=== PATIENT | female | born 1940 | race Two or more races ===

== ENCOUNTER 2025-07-17 11:09 | Emergency (ER) | payer OTHER ==
[~2025-07-17] VITALS: Ht 157.5 cm; Wt 113.4 kg
[~2025-07-17 11:09] MED LIST: ATORVASTATIN CA10 MG; AVAPRO150 MG; CRESTOR40 MG; ISOSORBIDE MONO30 M2; LANTUS SOL100 UNIT/1 SQ; PEPCID20 MG PO; ROSUVASTATIN CAL5 MG
[2025-07-17] MEDS ORDERED: TRAMADOL HCL 50 MG TABLET PO ONE (13:15)
[2025-07-17 14:09] LABS: BASO % 0.3 % (0.1-1.2); EOS # 0.21 (0.04-0.54); EOS % 2.7 % (0.7-7.0); LYMPH # 1.51 (1.18-3.74); LYMPH % 19.5 % (19.3-53.1); MEAN PLATELET VOLUME 11.20 fl (9.4-12.4); MONO # 0.53 (0.24-0.82); MONO % 6.9 % (4.7-12.5); NEUT # 5.45 (1.56-6.13); NEUT % 70.5 % (34.0-71.1); RED CELL DISTRIBUTION WIDTH 14.1 % (11.6-14.4)
[2025-07-17 14:31] LABS: URINE APPEARANCE Clear; URINE BILIRRUBIN Negative (NEGATIVE); URINE BLOOD Negative; URINE COLOR Yellow; URINE GLUCOSE Negative (NEGATIVE); URINE KETONE Negative (NEGATIVE); URINE LEUKOCYTE Negative; URINE NITRATE Negative; URINE UROBILINOGEN 0.2 E.U./dl
[2025-07-17 14:31] LABS: ALT/SGPT 21.0 U/L (12-78); AST/SGOT 14.0 U/L (15-37); BILIRUBIN TOTAL 0.28 mg/dL (0.3-1.2); BUN CREA RATIO 30.0 (7.0-25.0); CREATININE SERUM 1.13 mg/dL (0.55-1.02); GFR 45.98; GLOBULINA 4.2 G/DL (2.4-3.5); GLUCOSE FASTING 150.0 mg/dL (65-100); OSMOLALITY SERUM 297.0 MOSM/KG (275-295)
[2025-07-17 14:40] LABS: URINE BACTERIA 69.5 uL (0.0-1933); URINE EPITHELIAL CELLS 6.3 uL (0.0-38.8); URINE RBC 4.6 uL (0.0-20.8); URINE WBC 19.5 uL (0.0-23.2)
[2025-07-17 15:22] LABS: URINE CAST 0.29 uL (0.0-1.40); URINE PROTEIN 100 (NEGATIVE)
[2025-07-17 15:42] LABS: ABG PH 7.368 (7.35-7.45); ABG PO2 100.4 mmHg (80-100)
[2025-07-17 15:44] LABS: BICARBONATE 97.5 mmol/l (23-25); o2 21 %
[2025-07-17] MEDS ORDERED: KETOROLAC TROMETHAMINE 30 MG VIAL ONE (23:46)
[2025-07-17] MEDS ORDERED: KETOROLAC TROMETHAMINE 30 MG VIAL IV STA (23:47)
== END 2025-07-18 12:24 | disposition home or self-care (01) ==
LOC: ER 11:09
PROVIDERS: General Practice
DX: R60.0 Localized edema (principal); R06.02 Shortness of breath; I10 Essential (primary) hypertension; E11.9 Type 2 diabetes mellitus without complications; Z79.4 Long term (current) use of insulin
CPT/HCPCS: 36415; 51702; 71045; 82803; 99283; J1885; J3490

== ENCOUNTER 2025-08-27 11:28 | Inpatient (IN) | payer OTHER ==
[~2025-08-27] VITALS: Ht 157.5 cm; Wt 113.4 kg
[2025-08-27] MEDS ORDERED: VANCOMYCIN HCL 1,000 MG VIAL IV SCH (11:45)
[2025-08-27] MEDS ORDERED: FAMOtidine 10 MG/ML (4ML VIAL) IV ONE (11:45)
[2025-08-27] MEDS ORDERED: LEVALBUTEROL HCL 1.25 MG/3 ML SOLUTION IH SCH (11:46)
[2025-08-27] MEDS ORDERED: INSULIN LISPRO 1,000 UNIT/10 ML UNITS SUBCUTANEO PRN (12:00)
[2025-08-27] MEDS ORDERED: MORPHINE SULFATE 2 MG/ML SYRINGE IV PRN (12:00)
[2025-08-27] MEDS ORDERED: DEXTROSE 50 % IN WATER 0.5 G/ML DISP.SYRIN IV PRN (12:00)
[2025-08-27] MEDS ORDERED: 0.9 % SODIUM CHLORIDE 1,000 ML IV ONE (12:00)
--- NOTE | 2025-08-27 12:04 | NUR ---
PACIENTE ALERTA Y ORIENTADA X3 REFIERE EDEMA EN LAS EXTREMIDADES INFERIORES. SE EVELIN S/V Y SE UBICA.
[2025-08-27] MEDS ORDERED: FAMOTIDINE/PF 20 MG/2 ML VIAL ONE (12:25)
[2025-08-27] MEDS ORDERED: VANCOMYCIN HCL 1,000 MG VIAL ONE (12:25)
[2025-08-27] MEDS ORDERED: LEVALBUTEROL HCL 1.25 MG/3 ML SOLUTION IH ONE ×2 (12:40→16:31)
[2025-08-27 13:11] LABS: BASO % 0.2 % (0.1-1.2); EOS # 0.16 (0.04-0.54); EOS % 1.6 % (0.7-7.0); LYMPH # 1.07 (1.18-3.74); LYMPH % 10.9 % (19.3-53.1); MEAN PLATELET VOLUME 11.00 fl (9.4-12.4); MONO # 0.56 (0.24-0.82); MONO % 5.7 % (4.7-12.5); NEUT # 8.02 (1.56-6.13); NEUT % 81.4 % (34.0-71.1); RED CELL DISTRIBUTION WIDTH 13.5 % (11.6-14.4)
--- NOTE | 2025-08-27 13:24 | NUR ---
SE ORIENTA A PACIENTE SOBRE TRATAMIENTO MEDICO, REFIERE ENTENDER. SE REALIZAN MUESTRAS DE LABORATORIO BAJO MEDIDAS ASEPTICAS. SE ADMINISTRAN MEDICAMENTOS PRISCILLA ORDEN MEDICA. SE COORDINA SONALI X. SE NOTIFICA ABG Y TERAPIA RESPIRATORIA. SE INSERTA SONDA URINARIA BAJO MEDIDAS ESTERILES, SE COLECTA U/A Y U/C.
[2025-08-27 13:50] LABS: INR 1.17
[2025-08-27 13:54] LABS: ALT/SGPT 16.0 U/L (12-78); AST/SGOT 23.0 U/L (15-37); BILIRUBIN TOTAL 0.45 mg/dL (0.3-1.2); BUN CREA RATIO 27.0 (7.0-25.0); CREATININE SERUM 1.49 mg/dL (0.55-1.02); GFR 33.42; GLOBULINA 4.3 G/DL (2.4-3.5); GLUCOSE FASTING 167.0 mg/dL (65-100); OSMOLALITY SERUM 297.0 MOSM/KG (275-295)
[2025-08-27 14:01] LABS: URINE APPEARANCE Cloudy; URINE BILIRRUBIN Negative (NEGATIVE); URINE BLOOD Negative; URINE COLOR Yellow; URINE GLUCOSE Negative (NEGATIVE); URINE KETONE Trace (NEGATIVE); URINE LEUKOCYTE Trace; URINE NITRATE Negative; URINE PROTEIN 30 (NEGATIVE); URINE UROBILINOGEN 1.0 E.U./dl
[2025-08-27 14:02] LABS: URINE BACTERIA 103.1 uL (0.0-1933); URINE CAST 1.61 uL (0.0-1.40); URINE EPITHELIAL CELLS 42.5 uL (0.0-38.8); URINE RBC 3.0 uL (0.0-20.8); URINE WBC 16.2 uL (0.0-23.2)
[2025-08-27 14:18] LABS: TYPE CELLS SQUAMOUS
[2025-08-27] MEDS ORDERED: CEFTRIAXONE SODIUM 2,000 MG in 0.9 % SODIUM CHLORIDE 100 ML IV ONE (18:15)
[2025-08-27] MEDS ORDERED: CEFTRIAXONE SODIUM 2,000 MG VIAL ONE (18:21)
[2025-08-27] MEDS ORDERED: ACETAMINOPHEN 325 MG TABLET PO PRN (21:15)
[2025-08-27 21:29] LABS: ERYTHROCYTE SEDIMENTATION RATE 36 mm/hr (0-30)
[2025-08-27 21:56] VITALS: BP 101/57; O2SAT 100
[2025-08-27] MEDS ORDERED: 0.9 % SODIUM CHLORIDE 1,000 ML IV SCH (22:30)
[2025-08-28] MEDS ORDERED: PIPERACILLIN/TAZOBACTAM SODIUM 2.25 GM in DEXTROSE 5 % IN WATER 50 ML IV SCH
[2025-08-28 03:35] VITALS: BP 111/66; O2SAT 100
[2025-08-28] MEDS ORDERED: ACETAMINOPHEN 500 MG GEL..CAP PO PRN (07:00)
[2025-08-28 08:00] VITALS: BP 96/52; O2SAT 97
[2025-08-28] MEDS ORDERED: ENOXAPARIN SODIUM 30 MG/0.3 ML SYRINGE SUBCUTANEO SCH (09:00)
[2025-08-28] MEDS ORDERED: ROSUVASTATIN CALCIUM 20 MG TABLET PO SCH (09:00)
[2025-08-28] MEDS ORDERED: PANTOPRAZOLE SODIUM 40 MG/VIAL VIAL IV SCH (09:00)
[2025-08-28] MEDS ORDERED: VANCOMYCIN HCL 5 MG/ML REDILUIDO IV SCH (09:00)
[2025-08-28] MEDS ORDERED: VANCOMYCIN HCL 500 MG VIAL IV SCH (09:00)
[2025-08-28] MEDS ORDERED: IRBESARTAN 75 MG TABLET PO SCH (09:00)
[2025-08-28] MEDS ORDERED: CEFEPIME HCL 2,000 MG VIAL IV SCH (17:00)
[2025-08-28 17:54] VITALS: BP 109/52; O2SAT 96
[2025-08-28] MEDS ORDERED: LINEZOLID 600 MG TABLET PO SCH (21:00)
[2025-08-29 02:28] VITALS: BP 101/59; O2SAT 98
[2025-08-29 06:15] LABS: BASO % 0.1 % (0.1-1.2); EOS # 0.28 (0.04-0.54); EOS % 3.7 % (0.7-7.0); LYMPH # 1.45 (1.18-3.74); LYMPH % 19.1 % (19.3-53.1); MEAN PLATELET VOLUME 12.10 fl (9.4-12.4); MONO # 0.68 (0.24-0.82); MONO % 9.0 % (4.7-12.5); NEUT # 5.14 (1.56-6.13); NEUT % 67.8 % (34.0-71.1); RED CELL DISTRIBUTION WIDTH 13.8 % (11.6-14.4)
[2025-08-29 06:41] LABS: ALT/SGPT 10.0 U/L (12-78); AST/SGOT 12.0 U/L (15-37); BILIRUBIN TOTAL 0.28 mg/dL (0.3-1.2); BUN CREA RATIO 27.0 (7.0-25.0); CREATININE SERUM 1.13 mg/dL (0.55-1.02); GFR 45.98; GLOBULINA 3.2 G/DL (2.4-3.5); GLUCOSE FASTING 117.0 mg/dL (65-100); OSMOLALITY SERUM 294.0 MOSM/KG (275-295)
[2025-08-29 08:00] VITALS: BP 112/59; O2SAT 96
[2025-08-29 16:00] VITALS: BP 123/57; O2SAT 98
[2025-08-29] MEDS ORDERED: EPOETIN ALFA-EPBX 10,000 UNIT/ML VIAL (Retacrit) SUBCUTANEO SCH (17:00)
[2025-08-29] MEDS ORDERED: CEFEPIME HCL 2,000 MG VIAL IV SCH (17:00)
[2025-08-29] MEDS ORDERED: CYANOCOBALAMIN (VITAMIN B-12) 1,000 MCG/ML VIAL IM STA (17:29)
[2025-08-29] MEDS ORDERED: SOD FERRIC GLUC COMPLX/SUCROSE 62.5 MG in 0.9 % SODIUM CHLORIDE 50 ML IV SCH (18:30)
[2025-08-29 23:55] VITALS: BP 100/50; O2SAT 97
[2025-08-30] MEDS ORDERED: PANTOPRAZOLE SODIUM 40 MG TABLET.DR PO SCH (09:00)
[2025-08-30] MEDS ORDERED: ENOXAPARIN SODIUM 40 MG/0.4 ML SYRINGE SUBCUTANEO SCH (09:00)
[2025-08-30] MEDS ORDERED: CYANOCOBALAMIN (VITAMIN B-12) 1,000 MCG/ML VIAL IM SCH (09:00)
[2025-08-30 11:58] LABS: URINE APPEARANCE Clear; URINE BILIRRUBIN Negative (NEGATIVE); URINE BLOOD Small; URINE COLOR Yellow; URINE GLUCOSE Negative (NEGATIVE); URINE KETONE Trace (NEGATIVE); URINE LEUKOCYTE Trace; URINE NITRATE Negative; URINE PROTEIN 30 (NEGATIVE); URINE UROBILINOGEN 0.2 E.U./dl
[2025-08-30 11:59] LABS: URINE BACTERIA 5.9 uL (0.0-1933); URINE EPITHELIAL CELLS 6.1 uL (0.0-38.8); URINE RBC 68.6 uL (0.0-20.8); URINE WBC 16.9 uL (0.0-23.2)
[2025-08-30 12:05] LABS: URINE CAST 0.87 uL (0.0-1.40)
[2025-08-30 16:00] VITALS: BP 116/49; O2SAT 97
[2025-08-30] MEDS ORDERED: SOD FERRIC GLUC COMPLX/SUCROSE 62.5 MG in 0.9 % SODIUM CHLORIDE 50 ML IV SCH (17:00)
[2025-08-31 00:30] VITALS: BP 100/52; O2SAT 96
[2025-08-31 08:48] VITALS: BP 122/55; O2SAT 97
[2025-08-31 16:08] VITALS: BP 109/60; O2SAT 96
[2025-08-31] MEDS ORDERED: CYANOCOBALAMIN (VITAMIN B-12) 1,000 MCG/ML VIAL IM SCH (17:00)
[2025-08-31] MEDS ORDERED: SOD FERRIC GLUC COMPLX/SUCROSE 62.5 MG in 0.9 % SODIUM CHLORIDE 50 ML IV SCH (17:00)
[2025-09-01 00:25] VITALS: BP 117/63; O2SAT 94
[2025-09-01 08:19] VITALS: BP 119/58; O2SAT 98
[2025-09-01] MEDS ORDERED: MUPIROCIN 22 GM OINT..GM TUBE NASAL SCH (09:00)
[2025-09-01] MEDS ORDERED: CHLORHEXIDINE GLUCONATE 120 ML BOTTLE TOP SCH (09:00)
[2025-09-01 13:20] LABS: BASO % 0.2 % (0.1-1.2); EOS # 0.17 (0.04-0.54); EOS % 1.4 % (0.7-7.0); LYMPH # 0.80 (1.18-3.74); LYMPH % 6.6 % (19.3-53.1); MEAN PLATELET VOLUME 11.20 fl (9.4-12.4); MONO # 0.50 (0.24-0.82); MONO % 4.1 % (4.7-12.5); NEUT # 10.68 (1.56-6.13); NEUT % 87.5 % (34.0-71.1); RED CELL DISTRIBUTION WIDTH 13.6 % (11.6-14.4)
[2025-09-01 14:07] LABS: BUN CREA RATIO 27.0 (7.0-25.0); CREATININE SERUM 0.96 mg/dL (0.55-1.02); GFR 55.5; GLUCOSE FASTING 138.0 mg/dL (65-100); OSMOLALITY SERUM 294.0 MOSM/KG (275-295)
[2025-09-01 15:25] VITALS: BP 114/67; O2SAT 96
[2025-09-02 00:28] VITALS: BP 107/61; O2SAT 96
[2025-09-02 06:51] LABS: BASO % 0.2 % (0.1-1.2); EOS # 0.34 (0.04-0.54); EOS % 2.9 % (0.7-7.0); LYMPH # 0.91 (1.18-3.74); LYMPH % 7.8 % (19.3-53.1); MEAN PLATELET VOLUME 11.40 fl (9.4-12.4); MONO # 0.51 (0.24-0.82); MONO % 4.4 % (4.7-12.5); NEUT # 9.87 (1.56-6.13); NEUT % 84.4 % (34.0-71.1); RED CELL DISTRIBUTION WIDTH 13.9 % (11.6-14.4)
[2025-09-02 08:49] VITALS: BP 106/62; O2SAT 97
[2025-09-02 15:57] VITALS: BP 127/65; O2SAT 98
[2025-09-02] MEDS ORDERED: ZINC OXIDE 30 GM,NYSTATIN 30 GM,SILVER SULFADIAZINE 50 GM TOP SCH (17:00)
[2025-09-03 00:06] VITALS: BP 147/66; O2SAT 98
[2025-09-03 08:00] VITALS: BP 128/63; O2SAT 96
[2025-09-03 16:00] VITALS: BP 154/65; O2SAT 95
[2025-09-04 00:09] VITALS: BP 118/61; O2SAT 98
[2025-09-04 08:30] VITALS: BP 121/64; O2SAT 95
[2025-09-04 16:57] VITALS: BP 158/67; O2SAT 99
[2025-09-05 00:30] VITALS: BP 141/68; O2SAT 97
[2025-09-05 07:10] LABS: BASO % 0.3 % (0.1-1.2); EOS # 0.22 (0.04-0.54); EOS % 3.0 % (0.7-7.0); LYMPH # 0.86 (1.18-3.74); LYMPH % 11.7 % (19.3-53.1); MEAN PLATELET VOLUME 10.60 fl (9.4-12.4); MONO # 0.52 (0.24-0.82); MONO % 7.1 % (4.7-12.5); NEUT # 5.72 (1.56-6.13); NEUT % 77.5 % (34.0-71.1); RED CELL DISTRIBUTION WIDTH 13.8 % (11.6-14.4)
[2025-09-05 07:45] LABS: ALT/SGPT 25.0 U/L (12-78); AST/SGOT 25.0 U/L (15-37); BILIRUBIN TOTAL 0.32 mg/dL (0.3-1.2); BUN CREA RATIO 26.0 (7.0-25.0); CREATININE SERUM 0.97 mg/dL (0.55-1.02); GFR 54.84; GLOBULINA 3.7 G/DL (2.4-3.5); GLUCOSE FASTING 107.0 mg/dL (65-100); OSMOLALITY SERUM 290.0 MOSM/KG (275-295)
[2025-09-05 08:37] VITALS: BP 121/56; O2SAT 95
[2025-09-05 16:52] VITALS: BP 116/60; O2SAT 97
[2025-09-06 00:30] VITALS: BP 112/68; O2SAT 96
[2025-09-06 08:40] VITALS: BP 151/65; O2SAT 99
[2025-09-06 15:56] VITALS: BP 135/65; O2SAT 94
[2025-09-07 02:08] VITALS: BP 122/66; O2SAT 95
[2025-09-07 08:00] VITALS: BP 129/55; O2SAT 95
[2025-09-07 16:00] VITALS: BP 147/64; O2SAT 97
[2025-09-07] MEDS ORDERED: CLOTRIMAZOLE 10 MG TROCHE MM SCH (17:00)
[2025-09-08] VITALS: BP 139/66; O2SAT 97
[2025-09-08 08:00] VITALS: BP 150/72; O2SAT 99
== END 2025-09-08 15:21 | disposition home or self-care (01) | DRG 300 ==
LOC: ER 11:28 → SURH 20:15
PROVIDERS: General Practice; Internal Medicine Infectious Disease; Internal Medicine Nephrology; ADMIT Internal Medicine; ATTEND Internal Medicine
PROC: 3E0F7GC Introduction of Other Therapeutic Substance into Respiratory Tract, Via Natural or Artificial Opening (ICD-10-PCS; principal; 2025-08-28)
PROC: 8E0ZXY6 Isolation (ICD-10-PCS; 2025-08-30)
PROC: 30233N1 Transfusion of Nonautologous Red Blood Cells into Peripheral Vein, Percutaneous Approach (ICD-10-PCS; 2025-08-31)
DX: I83.218 Varicose veins of right lower extremity with both ulcer of other part of lower extremity and inflammation (principal); L03.115 Cellulitis of right lower limb; L97.818 Non-pressure chronic ulcer of other part of right lower leg with other specified severity; L97.828 Non-pressure chronic ulcer of other part of left lower leg with other specified severity; L03.116 Cellulitis of left lower limb; N17.8 Other acute kidney failure; I83.228 Varicose veins of left lower extremity with both ulcer of other part of lower extremity and inflammation; E11.621 Type 2 diabetes mellitus with foot ulcer; Z79.4 Long term (current) use of insulin; E11.628 Type 2 diabetes mellitus with other skin complications; B96.5 Pseudomonas (aeruginosa) (mallei) (pseudomallei) as the cause of diseases classified elsewhere; B95.61 Methicillin susceptible Staphylococcus aureus infection as the cause of diseases classified elsewhere; E78.49 Other hyperlipidemia; I11.9 Hypertensive heart disease without heart failure; E11.22 Type 2 diabetes mellitus with diabetic chronic kidney disease; I12.9 Hypertensive chronic kidney disease with stage 1 through stage 4 chronic kidney disease, or unspecified chronic kidney disease; N18.9 Chronic kidney disease, unspecified; D64.9 Anemia, unspecified; J44.9 Chronic obstructive pulmonary disease, unspecified

== ENCOUNTER 2025-09-09 18:36 | Inpatient (IN) | payer OTHER ==
[~2025-09-09] VITALS: Ht 152.4 cm; Wt 81.6 kg
--- NOTE | 2025-09-09 19:25 | NUR ---
PACIENTE ALERTA Y ORIENTADA X3 QUIEN REFIERE VENIR POR HABERSE CAIDO EN ROBBINS RESIDENCIA. PACIENTE CON OXIGENO DE AMBULANCIA A 2 L/MIN.
[2025-09-09] MEDS ORDERED: IPRATROPIUM BROMIDE 0.5 MG/2.5 ML AMPUL.NEB IH ONE (20:30)
[2025-09-09] MEDS ORDERED: METHYLPREDNISOLONE SOD SUCC 125 MG VIAL IV ONE (20:30)
[2025-09-09] MEDS ORDERED: LEVALBUTEROL HCL 1.25 MG/3 ML SOLUTION IH ONE (20:30)
--- NOTE | 2025-09-09 23:01 | NUR ---
SE ORIENTA PACIENTE SOBRE TX MEDICO Y RAFAEL REFIERE ENTENDER Y ACEPTAR EL MSIMO. SE PROCEDE A KANIKA MUESTRAS DE LAB Y A CANALIZAR BAJO MEIDDAS ASEPTICAS NILE DE EDEMA Y ERITEMA. SE PROCEDE A ADMINISTRAR MEDICAMENTO PRISCILLA ORDEN MEDICA BAJO MEDIDAS ASEPTICAS. SE PROCEDE A CONECTAR PACIENTE A MONITOR CARDIACO CON OXIMETRIA DE PULSO.
[2025-09-09 23:15] LABS: BASO % 0.2 % (0.1-1.2); EOS # 0.00 (0.04-0.54); EOS % 0.0 % (0.7-7.0); ERYTHROCYTE SEDIMENTATION RATE 50 mm/hr (0-30); LYMPH # 1.08 (1.18-3.74); LYMPH % 12.7 % (19.3-53.1); MEAN PLATELET VOLUME 10.00 fl (9.4-12.4); MONO # 0.49 (0.24-0.82); MONO % 5.8 % (4.7-12.5); NEUT # 6.90 (1.56-6.13); NEUT % 80.9 % (34.0-71.1); RED CELL DISTRIBUTION WIDTH 14.6 % (11.6-14.4)
[2025-09-09 23:35] LABS: INR 1.36
[2025-09-09 23:40] LABS: ALT/SGPT 28.0 U/L (12-78); AST/SGOT 32.0 U/L (15-37); BILIRUBIN TOTAL 0.26 mg/dL (0.3-1.2); BUN CREA RATIO 24.0 (7.0-25.0); CREATININE SERUM 1.0 mg/dL (0.55-1.02); GFR 52.95; GLOBULINA 4.2 G/DL (2.4-3.5); GLUCOSE FASTING 136.0 mg/dL (65-100); OSMOLALITY SERUM 289.0 MOSM/KG (275-295)
[2025-09-10 01:16] LABS: COVID-19 AG NEGATIVE (NEGATIVE)
[2025-09-10] MEDS ORDERED: NITROGLYCERIN IN 5 % DEXTROSE 50 MG/250 ML BOTTLE IV STA (05:59)
--- NOTE | 2025-09-10 06:46 | NUR ---
PTE UBICADO EN AREA SECCION K#7, SE RERALIZA INSERCCION DE CISNEROS CATETER # 16 BAJO MEDIDAS ASEPTICAS Y LIMPIAS, SE KYMEBRLY MUESTRAS DE RENÉ Y SE ADMINISTRA MEDICACION PRISCILLA ORDEN MEDICA. SE OFRECE CAMBIO DE POSICION , PANAL Y LIMPIEZA AL CLIENTE . SE OFRECE ORIENTACION SOBRE PROCEDIMIENTOS REALIZADOS Y SEGUIMIENTO DE CONDICION.
[2025-09-10 08:45] LABS: URINE APPEARANCE Clear; URINE BILIRRUBIN Negative (NEGATIVE); URINE BLOOD Moderate; URINE COLOR Yellow; URINE GLUCOSE Negative (NEGATIVE); URINE KETONE Trace (NEGATIVE); URINE LEUKOCYTE Negative; URINE NITRATE Negative; URINE UROBILINOGEN 0.2 E.U./dl
--- NOTE | 2025-09-10 08:46 | NUR ---
S EPROCEDE A ORIENTAR A PACIENTE SOBRE TX MEDICO Y RAFAEL REFIERE ENTENDER Y ACEPTAR EL MISMO. SE PROCEDE A KANIKA S/V A PACIENTE Y SE ADMINISTRA MEDICAMENTO PRISCILLA ORDEN MEDICA BAJO MEDIDAS ASEPTICAS.
[2025-09-10 08:49] LABS: URINE BACTERIA 14.3 uL (0.0-1933); URINE CAST 4.25 uL (0.0-1.40); URINE EPITHELIAL CELLS 27.2 uL (0.0-38.8); URINE RBC 5.8 uL (0.0-20.8); URINE WBC 5.2 uL (0.0-23.2)
[2025-09-10 09:56] LABS: TYPE CELLS SQUAMOUS; URINE MUCUS MODERATE; URINE PROTEIN 300 (NEGATIVE)
[2025-09-10] MEDS ORDERED: LEVALBUTEROL HCL 0.63 MG/3 ML SOLUTION IH SCH (13:00)
[2025-09-10] MEDS ORDERED: IPRATROPIUM BROMIDE 0.5 MG/2.5 ML AMPUL.NEB IH SCH (13:05)
[2025-09-10] MEDS ORDERED: ENOXAPARIN SODIUM 40 MG/0.4 ML SYRINGE SUBCUTANEO SCH (13:08)
[2025-09-10] MEDS ORDERED: MEROPENEM 1,000 MG in 0.9 % SODIUM CHLORIDE 100 ML IV SCH (13:11)
[2025-09-10] MEDS ORDERED: INSULIN LISPRO 1,000 UNIT/10 ML UNITS SUBCUTANEO PRN (13:30)
[2025-09-10] MEDS ORDERED: DEXTROSE 50 % IN WATER 0.5 G/ML DISP.SYRIN IV PRN (13:30)
[2025-09-10 14:33] VITALS: BP 121/47; O2SAT 99
[2025-09-10 15:30] VITALS: BP 102/49; O2SAT 100
[2025-09-10 16:42] LABS: LDH 223.0 U/L (84-246)
[2025-09-10 16:45] LABS: CKMB 6.0 NG/ML (0.5-3.6)
[2025-09-10] MEDS ORDERED: MEROPENEM 500 MG in 0.9 % SODIUM CHLORIDE 100 ML IV SCH (17:00)
[2025-09-10] MEDS ORDERED: NITROGLYCERIN IN 5 % DEXTROSE 50 MG/250 ML KIT IV SCH (23:30)
[2025-09-10] MEDS ORDERED: GUAIFENESIN/DEXTROMETHORPHAN 100MG/10ML BLIST.PACK PO PRN (23:30)
[2025-09-11] VITALS (10 sets, daily range): BP systolic 96–143; BP diastolic 35–69; O2SAT 97–100
[2025-09-11 00:13] LABS: LDH 312.0 U/L (84-246)
[2025-09-11 00:21] LABS: CKMB 5.5 NG/ML (0.5-3.6)
[2025-09-11 06:15] LABS: BASO % 0.4 % (0.1-1.2); EOS # 0.03 (0.04-0.54); EOS % 0.4 % (0.7-7.0); LYMPH # 1.19 (1.18-3.74); LYMPH % 16.7 % (19.3-53.1); MEAN PLATELET VOLUME 10.10 fl (9.4-12.4); MONO # 0.46 (0.24-0.82); MONO % 6.5 % (4.7-12.5); NEUT # 5.39 (1.56-6.13); NEUT % 75.6 % (34.0-71.1); RED CELL DISTRIBUTION WIDTH 14.7 % (11.6-14.4)
[2025-09-11 06:39] LABS: INR 1.31
[2025-09-11] MEDS ORDERED: NITROGLYCERIN IN 5 % DEXTROSE 250 ML IV SCH (06:45)
[2025-09-11 06:56] LABS: ALT/SGPT 25.0 U/L (12-78); AST/SGOT 25.0 U/L (15-37); BILIRUBIN TOTAL 0.36 mg/dL (0.3-1.2); BUN CREA RATIO 28.0 (7.0-25.0); CREATININE SERUM 1.21 mg/dL (0.55-1.02); GFR 42.49; GLOBULINA 4.5 G/DL (2.4-3.5); GLUCOSE FASTING 116.0 mg/dL (65-100); OSMOLALITY SERUM 295.0 MOSM/KG (275-295)
[2025-09-11 07:05] LABS: CHOL HDL RATIO 1.6 (0-5.0); CKMB 2.8 NG/ML (0.5-3.6); HDL 46.0 mg/dl (40-60); LDH 208.0 U/L (84-246); LDL 12.0 mg/dl (0-130); TSH 1.34 uIU/mL (0.358-3.74); VLDL 16.0 (0-39)
[2025-09-11] MEDS ORDERED: LINEZOLID IN DEXTROSE 5% 300 ML IV NR (11:00)
[2025-09-11] MEDS ORDERED: BUDESONIDE 0.5 MG/2 ML AMPUL.NEB IH SCH (11:59)
[2025-09-11] MEDS ORDERED: CLOPIDOGREL BISULFATE 75 MG TABLET PO SCH (12:00)
[2025-09-11] MEDS ORDERED: CLOPIDOGREL BISULFATE 75 MG TABLET PO NR (13:00)
[2025-09-11] MEDS ORDERED: CLOTRIMAZOLE 10 MG TROCHE MM SCH (17:00)
[2025-09-11] MEDS ORDERED: METHYLPREDNISOLONE SOD SUCC 40 MG VIAL IV SCH (20:29)
[2025-09-11] MEDS ORDERED: IPRATROPIUM BROMIDE 0.5 MG/2.5 ML AMPUL.NEB IH SCH (21:00)
[2025-09-11] MEDS ORDERED: LINEZOLID IN DEXTROSE 5% 300 ML IV SCH (21:00)
[2025-09-11] MEDS ORDERED: LEVALBUTEROL HCL 0.63 MG/3 ML SOLUTION IH SCH (21:00)
[2025-09-12 04:00] VITALS: BP 130/56; O2SAT 98
[2025-09-12 06:54] LABS: URINE APPEARANCE Clear; URINE BILIRRUBIN Negative (NEGATIVE); URINE BLOOD Moderate; URINE COLOR Yellow; URINE GLUCOSE Negative (NEGATIVE); URINE KETONE 15 (NEGATIVE); URINE LEUKOCYTE Small; URINE NITRATE Negative; URINE UROBILINOGEN 1.0 E.U./dl
[2025-09-12 06:55] LABS: URINE BACTERIA 38.3 uL (0.0-1933); URINE CAST 1.75 uL (0.0-1.40); URINE EPITHELIAL CELLS 18.2 uL (0.0-38.8); URINE RBC 144.0 uL (0.0-20.8); URINE WBC 82.2 uL (0.0-23.2)
[2025-09-12 07:14] LABS: URINE PROTEIN 100 (NEGATIVE)
[2025-09-12 07:19] LABS: TYPE CELLS RENAL TUBULAR; URINE CRYSTALS FEW /HPF
[2025-09-12 08:00] VITALS: BP 140/60; O2SAT 96
[2025-09-12] MEDS ORDERED: CLOPIDOGREL BISULFATE 75 MG TABLET PO SCH (09:00)
[2025-09-12 13:00] VITALS: BP 108/47; O2SAT 95
[2025-09-12 16:01] VITALS: BP 123/59; O2SAT 92
[2025-09-12 20:00] VITALS: BP 134/68; O2SAT 100
[2025-09-12 23:06] VITALS: BP 124/57; O2SAT 96
[2025-09-13] VITALS (8 sets, daily range): BP systolic 92–140; BP diastolic 51–80; O2SAT 92–100
[2025-09-13] MEDS ORDERED: METHYLPREDNISOLONE SOD SUCC 40 MG VIAL IV SCH (01:00)
[2025-09-13] MEDS ORDERED: NIFEDIPINE 60 MG TAB.SA.OSM PO SCH (13:17)
[2025-09-13] MEDS ORDERED: ENALAPRILAT DIHYDRATE 1.25 MG/ML VIAL IV PRN (13:30)
[2025-09-13] MEDS ORDERED: CARVEDILOL 12.5 MG TABLET PO SCH (17:00)
[2025-09-13] MEDS ORDERED: HYDROCHLOROTHIAZIDE 25 MG TABLET PO SCH (21:00)
[2025-09-14] VITALS (10 sets, daily range): BP systolic 122–136; BP diastolic 58–72; O2SAT 90–97
[2025-09-14] MEDS ORDERED: METHYLPREDNISOLONE SOD SUCC 40 MG VIAL IV SCH (01:00)
[2025-09-15] VITALS (7 sets, daily range): BP systolic 122–138; BP diastolic 57–67; O2SAT 90–98
[2025-09-15] MEDS ORDERED: ANIDULAFUNGIN 100 MG VIAL IV ONE (17:30)
[2025-09-16] VITALS (8 sets, daily range): BP systolic 117–151; BP diastolic 54–71; O2SAT 90–100
[2025-09-16 05:38] LABS: BASO % 0.2 % (0.1-1.2); EOS # 0.04 (0.04-0.54); EOS % 0.4 % (0.7-7.0); LYMPH # 1.10 (1.18-3.74); LYMPH % 10.8 % (19.3-53.1); MEAN PLATELET VOLUME 11.20 fl (9.4-12.4); MONO # 0.48 (0.24-0.82); MONO % 4.7 % (4.7-12.5); NEUT # 8.51 (1.56-6.13); NEUT % 83.4 % (34.0-71.1); RED CELL DISTRIBUTION WIDTH 15.8 % (11.6-14.4)
[2025-09-16 05:50] LABS: ALT/SGPT 28.0 U/L (12-78); AST/SGOT 22.0 U/L (15-37); BILIRUBIN TOTAL 0.42 mg/dL (0.3-1.2); BUN CREA RATIO 40.0 (7.0-25.0); CREATININE SERUM 0.9 mg/dL (0.55-1.02); GFR 59.8; GLOBULINA 3.7 G/DL (2.4-3.5); GLUCOSE FASTING 141.0 mg/dL (65-100); OSMOLALITY SERUM 294.0 MOSM/KG (275-295)
[2025-09-16] MEDS ORDERED: ACETAMINOPHEN 500 MG GEL..CAP PO PRN (09:15)
[2025-09-16] MEDS ORDERED: ANIDULAFUNGIN 100 MG VIAL IV SCH (17:00)
[2025-09-16] MEDS ORDERED: PANTOPRAZOLE SODIUM 40 MG/VIAL VIAL IV SCH (19:45)
[2025-09-16] MEDS ORDERED: FAMOTIDINE/PF 20 MG in 0.9 % SODIUM CHLORIDE 100 ML IV SCH (21:00)
[2025-09-17 03:13] VITALS: BP 133/69; O2SAT 99
[2025-09-17 05:33] VITALS: O2SAT 90
[2025-09-17 10:59] VITALS: BP 114/64; O2SAT 100
[2025-09-17 17:19] VITALS: BP 106/54
[2025-09-17 21:37] VITALS: O2SAT 97
[2025-09-18] VITALS (8 sets, daily range): BP systolic 119–134; BP diastolic 57–70; O2SAT 90–97
[2025-09-18] MEDS ORDERED: PANTOPRAZOLE SODIUM 40 MG TABLET.DR PO SCH (09:00)
[2025-09-18] MEDS ORDERED: MEROPENEM 500 MG in 0.9 % SODIUM CHLORIDE 100 ML IV SCH (17:00)
[2025-09-19] VITALS (9 sets, daily range): BP systolic 109–150; BP diastolic 68–72; O2SAT 90–96
[2025-09-19 05:46] LABS: BASO % 0.2 % (0.1-1.2); EOS # 0.34 (0.04-0.54); EOS % 3.5 % (0.7-7.0); LYMPH # 0.83 (1.18-3.74); LYMPH % 8.5 % (19.3-53.1); MEAN PLATELET VOLUME 11.90 fl (9.4-12.4); MONO # 0.62 (0.24-0.82); MONO % 6.4 % (4.7-12.5); NEUT # 7.92 (1.56-6.13); NEUT % 81.1 % (34.0-71.1); RED CELL DISTRIBUTION WIDTH 16.3 % (11.6-14.4)
[2025-09-19 06:38] LABS: ALT/SGPT 28.0 U/L (12-78); AST/SGOT 19.0 U/L (15-37); BILIRUBIN TOTAL 0.59 mg/dL (0.3-1.2); BUN CREA RATIO 37.0 (7.0-25.0); CREATININE SERUM 0.78 mg/dL (0.55-1.02); GFR 70.53; GLOBULINA 3.8 G/DL (2.4-3.5)
[2025-09-19 06:40] LABS: GLUCOSE FASTING 200.0 mg/dL (65-100); OSMOLALITY SERUM 293.0 MOSM/KG (275-295)
[2025-09-19] MEDS ORDERED: LEVALBUTEROL HCL 1.25 MG/3 ML SOLUTION IH SCH (13:00)
[2025-09-19] MEDS ORDERED: MEROPENEM 500 MG/VIAL VIAL IV ONE (15:54)
[2025-09-20] VITALS (7 sets, daily range): BP systolic 125–134; BP diastolic 60–66; O2SAT 94–99
[2025-09-21] VITALS (7 sets, daily range): BP systolic 110–114; BP diastolic 63–65; O2SAT 90–98
[2025-09-21 07:03] LABS: BUN CREA RATIO 35.0 (7.0-25.0); CREATININE SERUM 0.86 mg/dL (0.55-1.02); GFR 63.02; GLUCOSE FASTING 161.0 mg/dL (65-100); OSMOLALITY SERUM 289.0 MOSM/KG (275-295)
[2025-09-22] VITALS (9 sets, daily range): BP systolic 106–119; BP diastolic 62–67; O2SAT 90–100
[2025-09-23] VITALS (9 sets, daily range): BP systolic 105–147; BP diastolic 54–63; O2SAT 90–98
[2025-09-24] VITALS (8 sets, daily range): BP systolic 104–118; BP diastolic 59–75; O2SAT 90–98
[2025-09-24 07:50] LABS: BASO % 0.4 % (0.1-1.2); EOS # 0.21 (0.04-0.54); EOS % 2.8 % (0.7-7.0); LYMPH # 1.17 (1.18-3.74); LYMPH % 15.7 % (19.3-53.1); MEAN PLATELET VOLUME 12.60 fl (9.4-12.4); MONO # 0.52 (0.24-0.82); MONO % 7.0 % (4.7-12.5); NEUT # 5.50 (1.56-6.13); NEUT % 73.7 % (34.0-71.1); RED CELL DISTRIBUTION WIDTH 16.0 % (11.6-14.4)
[2025-09-24 08:29] LABS: BUN CREA RATIO 30.0 (7.0-25.0); CREATININE SERUM 0.89 mg/dL (0.55-1.02); GFR 60.57; GLUCOSE FASTING 132.0 mg/dL (65-100); OSMOLALITY SERUM 290.0 MOSM/KG (275-295)
[2025-09-24] MEDS ORDERED: POTASSIUM CHLORIDE 20MEQ/100ML H2O PB IV NR (10:45)
[2025-09-24] MEDS ORDERED: EMOLLIENTS 6 OZ BOTTLE TOP ONE (13:00)
[2025-09-24] MEDS ORDERED: POTASSIUM CHLORIDE 8 MEQ TABLET PO SCH (17:00)
[2025-09-24] MEDS ORDERED: AMINO ACIDS/PROTEIN HYDROLYS 30 ML BLIST.PACK PO SCH (17:00)
[2025-09-25] VITALS (8 sets, daily range): BP systolic 102–126; BP diastolic 60–75; O2SAT 92–99
[2025-09-25 06:35] LABS: BUN CREA RATIO 32.0 (7.0-25.0); CREATININE SERUM 0.95 mg/dL (0.55-1.02); GFR 56.18; GLUCOSE FASTING 139.0 mg/dL (65-100); OSMOLALITY SERUM 293.0 MOSM/KG (275-295)
[2025-09-25] MEDS ORDERED: POTASSIUM CHLORIDE 20MEQ/100ML H2O PB IV NR (10:00)
[2025-09-25] MEDS ORDERED: POTASSIUM CHLORIDE 20MEQ/100ML H2O PB IV ONE (13:55)
[2025-09-25] MEDS ORDERED: MEROPENEM 500 MG in 0.9 % SODIUM CHLORIDE 100 ML IV SCH (17:00)
[2025-09-25] MEDS ORDERED: MEROPENEM 500 MG/VIAL VIAL IV ONE (18:35)
[2025-09-26] VITALS (9 sets, daily range): BP systolic 108–150; BP diastolic 57–73; O2SAT 90–98
[2025-09-27] VITALS (9 sets, daily range): BP systolic 93–116; BP diastolic 50–67; O2SAT 90–99
[2025-09-27 07:01] LABS: BUN CREA RATIO 35.0 (7.0-25.0); CREATININE SERUM 0.93 mg/dL (0.55-1.02); GFR 57.58; GLUCOSE FASTING 151.0 mg/dL (65-100); OSMOLALITY SERUM 297.0 MOSM/KG (275-295)
[2025-09-28] VITALS (9 sets, daily range): BP systolic 109–113; BP diastolic 58–73; O2SAT 90–97
[2025-09-29 00:05] VITALS: O2SAT 96
[2025-09-29 03:01] VITALS: O2SAT 90
[2025-09-29 03:37] VITALS: BP 105/61; O2SAT 100
[2025-09-29 08:23] VITALS: BP 122/58; O2SAT 97
[2025-09-29 09:19] VITALS: O2SAT 95
== END 2025-09-29 15:48 | disposition home or self-care (01) | DRG 637 ==
LOC: ER 18:36 → ICU-2 09-10 13:07 → ICU 09-11 12:29 → MEDI 09-13 18:34
PROVIDERS: General Practice; Internal Medicine Infectious Disease; Internal Medicine Nephrology; Specialist/Technologist, Other Nephrology; ADMIT Internal Medicine; ATTEND Internal Medicine
PROC: BB24ZZZ Computerized Tomography (CT Scan) of Bilateral Lungs (ICD-10-PCS; 2025-09-09)
PROC: B246ZZZ Ultrasonography of Right and Left Heart (ICD-10-PCS; 2025-09-10)
PROC: 3E0F7GC Introduction of Other Therapeutic Substance into Respiratory Tract, Via Natural or Artificial Opening (ICD-10-PCS; 2025-09-10)
PROC: 4A12X4Z Monitoring of Cardiac Electrical Activity, External Approach (ICD-10-PCS; 2025-09-11)
PROC: 02HV33Z Insertion of Infusion Device into Superior Vena Cava, Percutaneous Approach (ICD-10-PCS; 2025-09-11)
PROC: B548ZZA Ultrasonography of Superior Vena Cava, Guidance (ICD-10-PCS; 2025-09-11)
PROC: 8E0ZXY6 Isolation (ICD-10-PCS; principal; 2025-09-12)
PROC: BB24ZZZ Computerized Tomography (CT Scan) of Bilateral Lungs (ICD-10-PCS; 2025-09-25)
DX: E11.622 Type 2 diabetes mellitus with other skin ulcer (principal); I21.4 Non-ST elevation (NSTEMI) myocardial infarction; I50.33 Acute on chronic diastolic (congestive) heart failure; I13.0 Hypertensive heart and chronic kidney disease with heart failure and stage 1 through stage 4 chronic kidney disease, or unspecified chronic kidney disease; L97.919 Non-pressure chronic ulcer of unspecified part of right lower leg with unspecified severity; L97.929 Non-pressure chronic ulcer of unspecified part of left lower leg with unspecified severity; L03.116 Cellulitis of left lower limb; L03.115 Cellulitis of right lower limb; Z16.39 Resistance to other specified antimicrobial drug; J44.1 Chronic obstructive pulmonary disease with (acute) exacerbation; N39.0 Urinary tract infection, site not specified; N17.9 Acute kidney failure, unspecified; I83.019 Varicose veins of right lower extremity with ulcer of unspecified site; I83.029 Varicose veins of left lower extremity with ulcer of unspecified site; B37.2 Candidiasis of skin and nail; D64.89 Other specified anemias; E78.5 Hyperlipidemia, unspecified; R19.7 Diarrhea, unspecified; N18.9 Chronic kidney disease, unspecified; E87.6 Hypokalemia; E88.09 Other disorders of plasma-protein metabolism, not elsewhere classified; Z79.4 Long term (current) use of insulin; Z74.01 Bed confinement status; B95.62 Methicillin resistant Staphylococcus aureus infection as the cause of diseases classified elsewhere; B96.20 Unspecified Escherichia coli [E. coli] as the cause of diseases classified elsewhere; Z77.22 Contact with and (suspected) exposure to environmental tobacco smoke (acute) (chronic)